=== PATIENT | female | born 2000 | race Caucasian/White ===

== ENCOUNTER 2022-07-08 13:24 | Emergency (ER) | payer OTHER, SELFPAY ==
[2022-07-08 13:37] VITALS: BP 114/85; PULSE 114; RESP 18; TEMP 37; O2SAT 96; BMI 18.8
--- NOTE | 2022-07-08 14:36 | CRLHL7_ITS ---
For Patients: As a result of the Cures Act, medical imaging exams and procedure reports are released immediately into your electronic medical record. You may view this report before your referring provider. If you have questions, please contact your health care provider. Indication: Shortness of breath Comparison: None available. Technique: PA and lateral views of the chest Findings: There is no focal consolidation, effusion, or pneumothorax. The cardiomediastinal silhouette is within normal limits. The bony thorax is grossly intact. Impression: No acute cardiopulmonary abnormality. Dictated by Tim Wren MD @ 07/08/2022 3:22:17 PM (Electronically Signed)
[2022-07-08] MEDS: IPRAT-ALBUT 0.5-2.5 MG/3 ML NEB 1 NEB IH (14:54)
[2022-07-08] MEDS: predniSONE 10 MG TABLET 50 MG PO (15:01)
--- NOTE | 2022-07-08 15:41 | ED_ITS ---
HPI - General Adult General Chief complaint: Shortness of Breath/Dyspnea Stated complaint: Difficulty Breathing Time Seen by Provider: 07/08/22 14:01 Source: patient Mode of arrival: ambulatory Limitations: no limitations History of Present Illness HPI narrative: 22 year female coming in today complaining shortness of breath for about 3 days. States that she had upper respiratory infection with cough and congestion, symptoms have mostly resolved shortness of breath remains. She states that is worse with any kind of physical activity. She does deny any chest pain. Denies fevers or chills. She still does have mild cough. She denies any history of asthma, takes medications aside from Prozac. Sister has asthma. Related Data Home Medications Medication Instructions Recorded Confirmed Prozac 07/08/22 Previous Rx's Medication Instructions Recorded prednisone 20 mg tablet 40 mg (2 x 20 mg) PO DAILY 5 days 07/08/22 #10 tabs Allergies Allergy/AdvReac Type Severity Reaction Status Date / Time No Known Drug Allergies Allergy Verified 07/08/22 13:40 Review of Systems Status of ROS: Reports: 10 or more systems reviewed and unremarkable except as noted in History and below Exam Narrative: Exam Narrative: Well-nourished well-developed patient in no acute distress. Alert and oriented. Answers questions appropriately. Mood and affect are appropriate. Thoughts are goal oriented and rational. No tangential or magical thinking noted. Patient speaks in full sentences without needing to catch their breath. HEENT: Normocephalic atraumatic. Pupils are equally round reactive to light. Extraocular muscles are intact. Conjunctivae are moist without any icterus noted. Moist mucous membranes. Posterior pharynx is normal. Neck is soft without any lymphadenopathy or thyromegaly. No masses are appreciated. Cardiovascular: Heart is regular rate and rhythm S1 and S2 are present without any murmurs. Lungs: Diffuse bilateral wheezing. Abdomen: Soft and nontender nondistended with normal bowel sounds. Extremities: Bilateral lower extremities are without edema. Skin: Well perfused without any obvious rashes. Const: Vital Signs, click to edit/add: Vital Signs - 24 hr 07/08/22 13:37 Temperature 98.6 F Pulse Rate [Right Pulse Oximeter] 114 H Respiratory Rate 18 Blood Pressure [Ri ght Upper Arm] 114/85 Pulse Oximetry 96 Oxygen Delivery Me thod Room Air Course Course Hospital Course: Patient received DuoNeb and oral prednisone. Chest x-ray was done, read by me, does not show any acute infiltrates. After DuoNeb was done, patient felt significantly better. Repeat examination reveals that her wheezing has resolved. Vital Signs Vital signs: Initial Vital Signs Temperature 98.6 F 07/08/22 13:37 Temperature Source Temporal Artery Scan 07/08/22 13:37 Pulse Rate 114 H 07/08/22 13:37 Respiratory Rate 18 07/08/22 13:37 Blood Pressure 114/85 07/08/22 13:37 Blood Pressure Mean 94 07/08/22 13:37 Blood Pressure Position Sitting 07/08/22 13:37 Pulse Oximetry 96 07/08/22 13:37 Oxygen Delivery Method Room Air 07/08/22 13:37 Vital Signs Temperature 98.6 F 07/08/22 13:37 Pulse Rate 114 H 07/08/22 13:37 Respiratory Rate 18 07/08/22 13:37 Blood Pressure 114/85 07/08/22 13:37 Pulse Oximetry 96 07/08/22 13:37 Oxygen Delivery Method Room Air 07/08/22 13:37 Temperature 98.6 F 07/08/22 13:37 Pulse Rate 114 H 07/08/22 13:37 Respiratory Rate 18 07/08/22 13:37 Blood Pressure 114/85 07/08/22 13:37 Pulse Oximetry 96 07/08/22 13:37 Oxygen Delivery Method Room Air 07/08/22 13:37 Medical Decision Making MDM Narrative Medical decision making narrative: 22-year-old female status post URI with bilateral wheezing. Patient will be sent home on prednisone. Due to the OB unit oral shortage inhaler will not be prescribed to her at this time. Recommend she return if her symptoms are getting worse again. Patient was agreeable with everything we discussed had no other questions. Lab Data Lab results reviewed: Yes I reviewed the patient's lab results Labs: Lab Results 07/08/22 Range/Units 14:55 SARS-CoV-2 (PCR) Negative SARS-CoV-2 (Negative) Influenza Type A (PCR) Negative PCR FLU A (Negative) Influenza Type B (PCR) Negative PCR FLU B (Negative) RSV (PCR) Negative PCR RSV (Negative) Imaging Data Chest x-ray: Attestation: I have reviewed the pertinent imaging results. Radiologist's impression: PA and lateral views of the chest Findings: There is no focal consolidation, effusion, or pneumothorax. The cardiomediastinal silhouette is within normal limits. The bony thorax is grossly intact. Impression: No acute cardiopulmonary abnormality. Discharge Plan Discharge Clinical Impression: Bilateral wheezing, URI (upper respiratory infection) Patient Disposition: Home, Self-Care Condition: Improved Additional Instructions: Take all steroid as prescribed. Return to the ER if your symptoms are worsening instead of getting better over the next few days. Prescriptions: New prednisone 20 mg tablet 40 mg PO DAILY 5 Days Qty: 10 0RF No Action Prozac Follow Up/Referrals: Provider,Not a Local [Primary Care Provider] - Stand Alone Forms: [employer] Info Instructions
[2022-07-08 16:03] LABS: PCR FLU A Negative PCR FLU A (Negative); PCR FLU B Negative PCR FLU B (Negative); PCR RSV Negative PCR RSV (Negative)
[2022-07-08 16:04] LABS: SARS PCR* Negative SARS-CoV-2 (Negative)
== END 2022-07-08 16:13 | disposition home or self-care (01) ==
PROVIDERS: Emergency Provider Family Medicine
DX: J06.9 Acute upper respiratory infection, unspecified (principal)
CPT/HCPCS: 71046; 87631; 94640; 99284; J7512